=== PATIENT | female | born 1960 | race Caucasian/White ===

== ENCOUNTER 2017-01-09 10:24 | Emergency (ER) | payer MEDICARE ==
[2017-01-09 11:12] LABS: AMPHETAMINES NEGATIVE (NEGATIVE); BARBITURATES NEGATIVE (NEGATIVE); BENZODIAZEPINES NEGATIVE (NEGATIVE); COCAINE NEGATIVE (NEGATIVE); MARIJUANA (THC) NEGATIVE (NEGATIVE); METHADONE NEGATIVE (NEGATIVE); TRICYCLIC ANTIDEPRESSANT POSITIVE (NEGATIVE)
== END 2017-01-09 12:00 | disposition home or self-care (01) ==
LOC: FER 10:24
PROVIDERS: Internal Medicine
DX: S46.911A Strain of unspecified muscle, fascia and tendon at shoulder and upper arm level, right arm, initial encounter (principal); I10 Essential (primary) hypertension; E78.5 Hyperlipidemia, unspecified; F17.210 Nicotine dependence, cigarettes, uncomplicated; Z88.8 Allergy status to other drugs, medicaments and biological substances; W01.198A Fall on same level from slipping, tripping and stumbling with subsequent striking against other object, initial encounter; Y92.009 Unspecified place in unspecified non-institutional (private) residence as the place of occurrence of the external cause
CPT/HCPCS: 73030; 80305; J1885

== ENCOUNTER 2022-05-13 08:34 | Emergency (ER) | payer MEDICARE ==
[~2022-05-13 08:34] MED LIST: CELEXA40 MG PO; CERTAGEN1 EACH PO; ELAVIL50 MG PO; NEURONTIN300 MG PO; NITROQUIK SL0.4 MG SL; OXYCODONE HCL10 MG PO; OXYCODONE HCL15 MG PO; RITALIN10 MG PO; RITALIN20 MG PO; SIMVASTATIN80 MG PO; TOPROL XL 50 MG50 MG PO; VENTOLIN HFA IN18 GM INH; VITAMIN B12-FO1 EACH PO; ZANAFLEX4 MG PO; ZESTRIL5 MG PO
[2022-05-13] MEDS ORDERED: PREDNISONE 20MG20 MG PO (09:33)
== END 2022-05-13 13:34 | disposition home or self-care (01) ==
LOC: FER 08:34
DX: L50.9 Urticaria, unspecified (principal); F17.210 Nicotine dependence, cigarettes, uncomplicated; Z88.5 Allergy status to narcotic agent; Z88.8 Allergy status to other drugs, medicaments and biological substances
CPT/HCPCS: 99282; J2930